=== PATIENT | female | born 1975 | race Two or more races ===

== ENCOUNTER 2018-07-15 15:03 | Emergency (ER) | payer SELFPAY ==
[~2018-07-15] VITALS: Ht 152.4 cm; Wt 57.9 kg
[2018-07-15 15:15] VITALS: BP 120/75
[2018-07-15 15:44] LABS: BASOPHILS # (AUTO) 0.05 x10^3/uL (0-0.1); BASOPHILS % (AUTO) 1 % (0-1); EOSINOPHILS # (AUTO) 0.15 x10^3/uL (0-0.4); EOSINOPHILS % (AUTO) 2 % (1-7); LYMPHOCYTES # (AUTO) 1.63 x10^3/uL (1-3.4); LYMPHOCYTES % (AUTO) 17 % (22-44); MD NO; MEAN CORPUSCULAR HEMOGLOBIN 28.9 pg (27.0-34.8); MEAN CORPUSCULAR HGB CONC 33.3 g/dL (32.4-35.8); MEAN PLATELET VOLUME 8.7 fL (7.4-10.4); MONOCYTES # (AUTO) 0.99 x10^3/uL (0.2-0.8); MONOCYTES % (AUTO) 10 % (2-9); NEUTROPHILS # (AUTO) 6.99 x10^3/uL (1.8-6.8); NEUTROPHILS % (AUTO) 71 % (42-75); PLATELET COUNT 286 x10^3/uL (130-400); RED BLOOD COUNT 5.01 x10^6/uL (3.82-5.3)
[2018-07-15 15:54] LABS: ALBUMIN 3.7 g/dL (3.4-5.0); ANION GAP 12 mmol/L (5-15); CHLORIDE 105 mmol/L (98-107)
[2018-07-15 16:13] LABS: ALANINE AMINOTRANSFERASE 22 U/L (12-78); ALKALINE PHOSPHATASE 79 U/L (45-117); BILIRUBIN,TOTAL 0.4 mg/dL (0.2-1.0); CREATININE 0.52 mg/dL (0.55-1.02)
[2018-07-15 16:45] LABS: MICROSCOPIC AUTO
[2018-07-15 16:54] LABS: CULTURE INDICATED? NO
== END 2018-07-15 18:32 | disposition home or self-care (01) ==
LOC: ED 18:01
DX: O20.0 Threatened abortion (principal)
CPT/HCPCS: 36415; 76801; 80053; 81001; 84702; 85025; 86901; 96372; 99285

== ENCOUNTER 2018-07-19 08:08 | Emergency (ER) | payer SELFPAY ==
[~2018-07-19] VITALS: Ht 149.9 cm; Wt 57.9 kg
[2018-07-19 13:08] VITALS: BP 119/61
== END 2018-07-19 13:09 | disposition home or self-care (01) ==
LOC: ED 09:22
DX: O03.4 Incomplete spontaneous abortion without complication (principal); Z32.01 Encounter for pregnancy test, result positive; Z3A.08 8 weeks gestation of pregnancy
CPT/HCPCS: 36415; 84702; 99283